=== PATIENT | male | born 1970 | race Caucasian/White ===

== ENCOUNTER 2019-11-21 12:58 | Emergency (ER) | payer BC ==
[~2019-11-21] VITALS: Ht 172.7 cm; Wt 77.6 kg
--- NOTE | 2019-11-21 13:18 | NUR ---
HEADACHE, VISUAL CHANGES SINCE 0600 YESTERDAY. PATIENT A/OX4, BREATHING EVEN AND UNLABORED, NO SOB NOTED, NO OTHER COMPLAINTS.
[2019-11-21 13:38] LABS: BASOPHILS % (AUTO) 0.2 % (0.0-2.0); EOSINOPHILS % (AUTO) 0.1 % (0.0-6.0); HEMATOCRIT 46 % (39-51); HEMOGLOBIN 15.7 g/dL (13.5-17.5); LYMPHOCYTES # (AUTO) 2.2 /CMM (0.8-4.8); LYMPHOCYTES % (AUTO) 17.3 % (20.0-44.0); MEAN CORPUSCULAR HGB CONC 34 g/dl (31.0-36.0); MEAN CORPUSCULAR VOLUME 95 fL (80-96); MONOCYTES # (AUTO) 0.6 /CMM (0.1-1.30); MONOCYTES % (AUTO) 5.1 % (2.0-12.0); NEUTROPHILS # (AUTO) 9.7 /CMM (1.8-8.9); NEUTROPHILS % (AUTO) 77.3 % (43.0-81.0); PLATELET COUNT (AUTO) 231 /CMM (150-450); RED BLOOD CELL COUNT(AUTO) 4.86 MIL/uL (4.5-6.0); WHITE BLOOD COUNT (AUTO) 12.5 K/uL (4.3-11.0)
[2019-11-21 13:51] LABS: BILIRUBIN,DIRECT 0.2 mg/dL (0.0-0.2); BILIRUBIN,TOTAL 1.3 mg/dL (0.2-1.0); CREATININE 1.1 mg/dL (0.6-1.3); POTASSIUM 3.7 mmol/L (3.5-5.1); TOTAL PROTEIN, SERUM 8.1 g/dL (6.4-8.2)
[2019-11-21 13:57] LABS: CALCIUM, SERUM 9.8 mg/dL (8.5-10.1)
--- NOTE | 2019-11-21 14:02 | NUR ---
PATIENT CAME BACK FROM CT.
[2019-11-21] MEDS ORDERED: IV NS 0.9% 1,000 ML BAG IV ONE (14:30)
[2019-11-21] MEDS ORDERED: PROCHLORPERAZINE EDISYLATE 10 MG/2 ML VIAL IVP ONE (14:30)
[2019-11-21] MEDS ORDERED: KETOROLAC TROMETHAMINE INJ 30 MG/ML VIAL IV ONE (14:30)
[2019-11-21] MEDS ORDERED: diphenhydrAMINE HCL 50 MG/ML VIAL IV ONE (14:30)
[2019-11-21] MEDS ORDERED: PROCHLORPERAZINE EDISYLATE 10 MG/2 ML VIAL ONE (14:31)
[2019-11-21] MEDS ORDERED: KETOROLAC TROMETHAMINE 15 MG/ML VIAL ONE (14:31)
[2019-11-21] MEDS ORDERED: diphenhydrAMINE HCL 50 MG/ML VIAL ONE (14:31)
--- NOTE | 2019-11-21 14:39 | NUR ---
PATIENT RESTING, NO DISTRESS NOTED. VITALS STABLE
--- NOTE | 2019-11-21 15:14 | NUR ---
PATIENT A/OX4, AMBULATORY WITH STEADY GAIT. NO S/SX OF STROKE NOTED. PATIENT DENIES PAIN. IV removed. Catheter intact and site benign. Pressure and 4x4 applied to site. No bleeding noted.Patient discharged to home in stable condition. Written and verbal after care instructions given. Patient verbalizes understanding of instruction.
[2019-11-21 15:15] VITALS: BP 143/100
== END 2019-11-21 15:15 | disposition home or self-care (01) ==
LOC: ER 13:08
DX: R51 Headache (principal); H53.149 Visual discomfort, unspecified; R94.31 Abnormal electrocardiogram [ECG] [EKG]
CPT/HCPCS: 36415; 70450; 80048; 80076; 85025; 85652; 85730; 93005; 96361; 96374; 96375; 99285; J0780; J1200; J1885; J7030